=== PATIENT | female | born 1985 | race Caucasian/White ===

== ENCOUNTER 2016-10-22 18:59 | Emergency (ER) | payer OTHER | END 2016-10-22 20:16 | disposition left against medical advice (07) | LOC: ER1 18:59 | DX: Z53.21 Procedure and treatment not carried out due to patient leaving prior to being seen by health care provider (principal) ==

== ENCOUNTER 2016-11-07 09:07 | Emergency (ER) | payer MEDICARE ==
[2016-11-07 10:12] LABS: HEMOGLOBIN 15.9 gm/dl (12.3-15.3); RED BLOOD COUNT 5.43 M/UL (4.00-5.10); WHITE BLOOD COUNT 5.8 K/UL (4.5-11.0)
[2016-11-07 10:32] LABS: BUN/CREATININE RATIO 8 (0-10)
== END 2016-11-07 10:20 | disposition left against medical advice (07) ==
LOC: ER1 09:07
PROVIDERS: Physician Assistant
DX: R07.1 Chest pain on breathing (principal); R00.2 Palpitations; R42 Dizziness and giddiness; I10 Essential (primary) hypertension; F17.210 Nicotine dependence, cigarettes, uncomplicated
CPT/HCPCS: 36415; 80053; 82550; 82553; 83874; 84484; 85025; 85379; 93005; 99285

== ENCOUNTER → 2021-07-31 | Outpatient (CLI) | payer OTHER ==
[~2021-07-31] MED LIST: BACTRIM DS TAB1 EACH PO; CEFUROXIME500 MG PO; IBUPROFEN600 MG PO; IBUPROFEN800 MG PO; KEFLEX CAP 500500 MG PO; NAPROXEN250 MG PO; NORCO 5-325 TA1 EACH PO
== END ==
LOC: LAB 09:50
DX: I25.10 Atherosclerotic heart disease of native coronary artery without angina pectoris (principal)
CPT/HCPCS: 36415; 80061

== ENCOUNTER → 2021-08-20 | Outpatient (CLI) | payer OTHER | LOC: KOH-I 09:50 | DX: M54.9 Dorsalgia, unspecified (principal); M54.2 Cervicalgia; M47.812 Spondylosis without myelopathy or radiculopathy, cervical region; M48.02 Spinal stenosis, cervical region; R05.9 Cough, unspecified; M25.562 Pain in left knee | CPT/HCPCS: 71046; 72040; 72070; 72100; 73562 ==

== ENCOUNTER 2022-01-21 11:28 | Emergency (ER) | payer OTHER ==
[2022-01-21 13:02] LABS: HEMOGLOBIN 13.2 gm/dl (12.3-15.3); RED BLOOD COUNT 4.13 M/UL (4.00-5.10); WHITE BLOOD COUNT 6.5 K/UL (4.5-11.0)
[2022-01-21 13:08] LABS: BUN/CREATININE RATIO 13 (0-10)
[2022-01-21] MEDS ORDERED: LASIX40 MG PO (15:13)
[2022-01-21] MEDS ORDERED: K-TAB ER20 MEQ PO (15:13)
== END 2022-01-21 13:27 | disposition left against medical advice (07) ==
LOC: ER1 11:28
PROVIDERS: Physician Assistant
DX: J40 Bronchitis, not specified as acute or chronic (principal); R60.0 Localized edema; F17.210 Nicotine dependence, cigarettes, uncomplicated; I10 Essential (primary) hypertension; Z88.5 Allergy status to narcotic agent; Z86.711 Personal history of pulmonary embolism; Z20.822 Contact with and (suspected) exposure to COVID-19
CPT/HCPCS: 0240U; 71045; 80053; 81001; 82550; 82553; 83880; 84484; 85025; 85379; 87081; 87880; 93005; 99283